=== PATIENT | female | born 1980 | race Caucasian/White ===

== ENCOUNTER 2023-10-27 19:57 | Emergency (ER) | payer OTHER, SELFPAY ==
[2023-10-27 20:00] VITALS: BP 128/84; PULSE 68; RESP 16; TEMP 36.6; O2SAT 99
--- NOTE | 2023-10-27 20:06 | ED.GENADULT ---
HPI - General Adult General Chief complaint: Unspecified Stated complaint: Poison Kathy Time Seen by Provider: 10/27/23 20:06 Source: patient Mode of arrival: ambulatory Limitations: no limitations History of Present Illness HPI narrative: 43 year old female presents to the Emergency Department with poison kathy. Patient states she was clearing some property and [place] 3 days ago. Has been applying Calamine, but seems to be spreading. Has rash to all extremities primarily. No difficulty breathing. Onset (ago): day(s) (3) Location: upper extremity and lower extremity Relieving factors: none Associated symptoms: rash and other (itching) Treatments prior to arrival: other (Calamine lotion) Related Data Allergies Allergy/AdvReac Type Severity Reaction Status Date / Time No Known Allergies Allergy Verified 10/27/23 20:01 Review of Systems Review of Systems: All systems reviewed & are unremarkable except as noted in HPI and below Constitutional: Constitutional: Reports as per HPI Eyes: Eyes: Reports as per HPI ENT: Reports system reviewed and no additional complaints, except as documented Cardiovascular: Cardiovascular: Reports as per HPI Respiratory: Respiratory: Reports as per HPI Gastrointestinal: Gastrointestinal: Reports as per HPI Genitourinary: Genitourinary: Reports no additional female genitourinary complaints Musculoskeletal: Musculoskeletal: Reports no additional musculoskeletal complaints Integumentary/Breasts: Skin/Breast: Reports system reviewed and no additional complaints, except as docu, Reports pruritus and Reports rash Neurologic: Reports system reviewed and no additional complaints, except as documented Exam Const: General: cooperative, healthy appearing, no acute distress, well developed, alert, awake and well nourished Orientation/consciousness: patient oriented x3 Limitations: no limitations HENMT: Head: normal to inspection Face/Nose/Sinus: Normal external nose present Face and sinus: normal facial exam Mouth: Yes Normal oral and palatal mucosa present Eyes: General: appearance normal, both eyes and all related structures EOM: EOMs intact bilaterally Neck: Neck: normal visual inspection Thyroid: thyroid normal Chest: Chest palpation & inspection: normal inspection of the chest Resp: Effort & Inspection: normal respiratory effort Cardio: Rate: regular rate Rhythm: regular rhythm GI: Inspection: normal to inspection and non-distended Skin: General skin exam: normal color and rashes (vesicular rash c/w contact dermatitis. Some weeping) Neuro: General: patient oriented x3 (grossly normal) Extrem: General: no clubbing, cyanosis or edema Psych: Appearance: grossly normal Course Course Emergency Course: 43 y/o female presents to the ED with poison kathy to extremities primarily. Onset 3 days ago. Pruritic. PE: scattered rash with vesicle and weeping to extremities primarily Tx: Depo Medrol 80 mg IM Rx and Instructions Discharge Plan Discharge Clinical Impression: Contact dermatitis Patient Disposition: Home, Self-Care Condition: Stable Instructions: Contact Dermatitis (ED) Additional Instructions: Keep area cool and dry Calamine or Caladryl lotion topically Take medications as prescribed Wash any clothing or bed linens that may have allergen exposure Follow up Primary Care Physician Patient Language: Swazi Prescriptions: New prednisone 10 mg tablet 10 mg PO DIRECTED Qty: 21 0RF Rx Instructions: Day 1: 6 tabs, Day 2: 5 tabs, Day 3: 4 tabs, Day 4: 3 tabs, Day 5: 2 tabs, Day 6: 1 tab diphenhydramine HCl 50 mg tablet 50 mg PO Q6H PRN (Reason: itching) Qty: 20 0RF Follow-up/Referrals: UNKNOWN,DOCTOR [Primary Care Provider] - Time of Disposition: 20:33
[2023-10-27] MEDS: methylPREDNISolone ACETATE 40 MG/ML VIAL 80 MG IM (20:19)
== END 2023-10-27 20:45 | disposition home or self-care (01) ==
LOC: CHSED 20:44
PROVIDERS: Emergency Provider Emergency Medicine
DX: L25.9 Unspecified contact dermatitis, unspecified cause (principal)
CPT/HCPCS: 96372; 99283; J1010